=== PATIENT | male | born 1970 | race Caucasian/White ===

== ENCOUNTER 2016-11-03 15:49 | Emergency (ER) | payer SELFPAY ==
[~2016-11-03] VITALS: Ht 180.3 cm; Wt 87.0 kg
[2016-11-03 15:52] VITALS: Ht 180.3 cm; Wt 87.0 kg
[2016-11-03] MEDS ORDERED: KETOROLAC 60 MG INJ IM STA (16:43)
--- NOTE | 2016-11-03 17:06 | RADRPT ---
PROCEDURE: CT Abdomen and Pelvis without contrast. CLINICAL INDICATION: Flank pain TECHNIQUE: CT scan of the abdomen and pelvis without contrast was performed. The patient was scann ed without intravenous contrast. Coronal and sagittal reformatted images were obtained from the axi al source images. Use of iterative reconstruction technique was employed. Images were reviewed on a high-resolution PACS workstation. images. The calculated radiation dose measures 798.02 mGy centimet ers. The CTDI measures 13.41 mGy. One or more of the following dose reduction techniques were used: - Automated exposure control. - Adjustment of the mA and/or kV according to patient size . - Use of iterative reconstruction technique. Images were reviewed on a high-resolution PACS workstation COMPARISON: None. FINDINGS: CT abdomen: The lung bases are clear. The heart size is normal, without pericardial thickening or effusion. Th e liver is normal in size and density without focal mass or intrahepatic biliary dilatation. The sp gris is normal in size and homogeneous in density. The stomach is partially collapsed, but is gross ly unremarkable. The pancreas as visualized is normal. The gallbladder and biliary tree are unrem arkable and there is no evidence for biliary dilatation. The adrenal glands are symmetric and saulo l. The kidneys are symmetrically unremarkable as well. No renal calculus or obstructive uropathy o r mass lesion is seen. The aorta is of normal caliber. There is a circumaortic left renal vein. There is no retroperitone al lymphadenopathy. The constantine hepatis region is clear. The bowel and mesentery, as visualized, are equally unremarkable. CT pelvis: The small bowel loops situated within the pelvis are unremarkable. The pelvic organs are normal. T he pelvic sidewalls and inguinal regions are clear. The sigmoid colon and rectum are not thickened or dilated. A normal appendix is identified. Stool is seen throughout the colon.. No mass, lympha denopathy, or free fluid is seen. No acute inflammation is seen. The surrounding osseous structures are remarkable for degenerative spondylosis of the spine. No ost eolytic or osteoblastic lesion is detected. IMPRESSION: 1. No evidence for nephroureterolithiasis or acute appendicitis on this noncontrast examination. 2. Stool is seen throughout the colon. RPTAT: PP .Onesimo Gifford MD, MD Date Time Electronically viewed and signed by .Onesimo Gifford MD, MD on 11/03/2016 17:06 .d/
--- NOTE | 2016-11-03 17:09 | ERD ---
ER Documentation Chief Complaint Date/Time DATE: 11/03/16 TIME: 17:06 Chief Complaint Complains of back x 1 month HPI Patient is a 46-year-old male who presents of thoracic and lower paraspinal back pain that he has had for 3-4 months. He states he has been seen by 4-5 different doctors. He has had x-rays and ultrasounds which were unremarkable. He states that he has had blood work about 1 month ago that was also normal. He states that in trying to figure out what was wrong the only thing they found her on was H pylori which she completed a 2 week course of antibiotics for. He states he has not tried any anti-inflammatory medications. He denies any fever , nausea, vomiting, diarrhea. He denies any change with food. He denies any aggravating or alleviating factors. He is ambulatory. He denies any trauma. ROS All systems reviewed and are negative except as per history of present illness. Medications Home Meds Active Scripts Naproxen* (Naprosyn*) 500 Mg Tablet, 500 MG PO BID Y for PAIN AND/OR INFLAMMATION, #30 TAB Prov:ALVINO MAR PA-C 11/03/16 Cyclobenzaprine Hcl* (Cyclobenzaprine Hcl*) 10 Mg Tablet, 10 MG PO QHS, #20 TAB Prov:ALVINO MAR PA-C 11/03/16 Allergies Allergies: Coded Allergies: No Known Allergy (Unverified , 11/03/16) PMhx/Soc Medical and Surgical Hx: pt denies Medical Hx, pt denies Surgical Hx Hx Alcohol Use: No Hx Substance Use: No Hx Tobacco Use: No FmHx Family History: No diabetes Physical Exam Vitals Vital Signs Date Time Temp Pulse Resp B/P Pulse Ox O2 Delivery O2 Flow Rate FiO2 11/03/16 15:52 98.3 77 20 130/81 97 Physical Exam General: well developed, well nourished, alert, nontoxic, no distress Head: normocephalic, atraumatic Neck: Supple, nontender, no lymphadenopathy, no midline tenderness Respiratory: Clear to auscaultation bilaterally, speaks in full sentences, no use of accesory muscles or labored breathing, no rales, ronchi, or wheezing Cardiovascular: RRR, No murmurs GI: soft, non tender, non distended, negative murphys sign, negative mcburneys point tenderness, no cva tenderness bilaterally, no rebound or guarding Back: no midline tenderness, no step offs or bony abnormalities, sensation to light touch in tact Extremities: moving all extremities normally, normal gait, no edema Results 24 hrs Laboratory Tests Test 11/03/16 17:18 Bedside Urine pH (LAB) 5.5 Bedside Urine Protein (LAB) 1+ Bedside Urine Glucose (UA) Negative Bedside Urine Ketones (LAB) Negative Bedside Urine Blood Negative Bedside Urine Nitrite (LAB) Negative Bedside Urine Leukocyte Esterase (L Negative Current Medications Medications (Trade) Dose Ordered Sig/Kavon Route PRN Reason Start Time Stop Time Status Last Admin Dose Admin Ketorolac Tromethamine (Toradol) 60 mg ONCE STAT IM 11/03/16 16:43 11/03/16 16:45 DC 11/03/16 17:10 Procedures/MDM 46-year-old male presents with back pain that he has had for 4-5 months. There is no trauma. He is ambulatory neurovascular intact. She has no CVA tenderness or abdominal tenderness. He has had normal workups that only reveal H. pylori which she is already been treated for. He has had x-rays and abdominal ultrasound which were negative. He states the only test he has not done is a CT scan and so he is requesting a CT scan. He had normal blood work a month ago and therefore I do not believe it is necessary to repeat blood work especially given that all of his vital signs are within normal limits, he is not tachycardic, he is not tachypneic. He is not febrile. He is well- appearing. He has not taken any anti-inflammatories which I believe the next step as his pain does seem to be musculoskeletal in nature. He was given Toradol here and his urine was checked and CT of the abdomen and pelvis was ordered. Urine and CT scan were unremarkable. He was given copy of the report. He was discharged with anti-inflammatory and Flexeril. Recommended this patient follow up with her primary care doctor within 48 hours or return to the emergency room for any worsening of symptoms. However this time I do believe there is suitable for outpatient management. I answered all their questions and they agreed with the plan and were discharged home. Departure Diagnosis: Primary Impression: Back pain Condition: Stable ALVINO MAR PA-C Nov 03, 2016 17:09
[2016-11-03 17:13] LABS: URINE BLOOD (Dip) POC Negative (NEGATIVE)
[2016-11-03] MEDS ORDERED: CYCL-319 PO (17:13)
[2016-11-03] MEDS ORDERED: NAPR-260 PO (17:13)
== END 2016-11-03 18:07 | disposition home or self-care (01) ==
LOC: FTE 15:49
DX: M54.6 Pain in thoracic spine (principal)
CPT/HCPCS: 74176; 81003; 96372; 99285; J1885